=== PATIENT | female | born 1995 | race American Indian/Alaskan Native ===

== ENCOUNTER 2022-03-23 12:28 | Outpatient (CLI) | payer OTHER ==
--- NOTE | 2022-03-23 14:03 | XRay Report ---
LEFT TIBIA AND FIBULA 2 VIEWS INDICATION: CONTUSION LEFT FOOT. COMPARISON: None. IMPRESSION: A posterior splint has been applied which degrades bony detail. No acute osseous abnorm ality is detected. The soft tissues appear edematous. LEFT ANKLE 4 VIEWS INDICATION: CONTUSION LEFT FOOT. COMPARISON: None. IMPRESSION: Posterior splint degrades bony detail. There is diffuse soft tissue swelling. No acute o sseous abnormality or significant joint pathology is appreciated. LEFT FOOT 3 VIEWS INDICATION: CONTUSION LEFT FOOT. COMPARISON: None. IMPRESSION: Posterior splint degrades bony detail. There is diffuse soft tissue swelling. No acute osseous abnormality or joint pathology is detected. Signer Name: Alejo Butler Jr, MD Signed: 03/23/2022 1:58 PM Workstation Name: [id number]
== END 2022-03-23 12:29 | disposition home or self-care (01) ==
LOC: XRAY 12:28
PROVIDERS: ATTEND Orthopaedic Surgery Sports Medicine
DX: S90.02XA Contusion of left ankle, initial encounter (principal); M79.89 Other specified soft tissue disorders; X58.XXXA Exposure to other specified factors, initial encounter; Y93.89 Activity, other specified; Y92.89 Other specified places as the place of occurrence of the external cause; Y99.8 Other external cause status